=== PATIENT | male | born 1950 | race Caucasian/White ===

== ENCOUNTER 2017-10-12 08:29 | Emergency (ER) | payer OTHER ==
[~2017-10-12] VITALS: Ht 167.6 cm; Wt 86.7 kg
[~2017-10-12 08:29] MED LIST: DIAZ10TA PO; LANTUS2P SQ; OXYC5 PO
[2017-10-12 08:35] VITALS: BP 127/81; PULSE 101; RESP 16; TEMP 98.5; O2SAT 96
--- NOTE | 2017-10-12 09:28 | PD ---
HPI Chief Complaint: Skin Problem Time Seen by Provider: 09:19 Travel History International Travel<30 days: No Contact w/Intl Traveler<30days: No Traveled to known affect area: No History of Present Illness HPI This is a 66-year-old male who presents for skin infection. He states that overnight, he developed erythema and tenderness on the left posterior base of the neck. He is not sure if it started with a spider bite. No associated fever , chills, nausea, vomiting, diarrhea. No neck stiffness. He has been compliant with all his medications including his antirejection medications. He has been otherwise well recently. Symptoms are mild in severity. Onset gradual. Prior treatment includes warm compresses. No known alleviating or aggravating factors. PFSH Past Medical History Arthritis: Yes Asthma: No Autoimmune Disease: No Heart Rhythm Problems: No Cancer: Yes (LIVER) Cardiovascular Problems: Yes (htn on meds) High Cholesterol: No Chest Pain: No Congestive Heart Failure: Yes COPD: Yes Cerebrovascular Accident: No Diabetes: Yes (type 2) Diminished Hearing: No GERD: No Glaucoma: No Headaches: No Hepatitis: Yes (B AND C) Hiatal Hernia: No Hypertension: Yes Kidney Stones: No Neurologic: Yes (BACK PROBLEMS, NON SURGICAL DISC AND CURVATURE ISSUES) Respiratory: Yes (copd) Myocardial Infarction: No Pancreatitis: Yes Renal Failure: No Seizures: No Sleep Apnea: No Thyroid Disease: No Ulcer: No Past Surgical History Abdominal Surgery: Yes (LIVER ) AICD: No Cardiac Surgery: No Cholecystectomy: Yes Ear Surgery: No Endocrine Surgery: No Eye Surgery: No Genitourinary Surgery: No Gynecologic Surgery: No Oral Surgery: No Pacemaker: No Thoracic Surgery: Yes (PNEUMOTHORAX X 2 WITH ? CHEST TUBES) Other Surgery: Yes (PNEUMOTHORAX X 2) Social History Alcohol Use: No Tobacco Use: Yes (1 PPD) Substance Use: No Allergies-Medications (Allergen,Severity, Reaction): Uncoded Allergies: "CHOLESTEROL MEDICATION" (Allergy, Mild, 10/12/17) .RASH and effects liver functions Reported Meds & Prescriptions Reported Meds & Active Scripts Active Reported Wellbutrin SR 12 HR (Bupropion HCl) 150 Mg Tab 150 Mg PO DAILY Diazepam 10 Mg Tab 10 Mg PO DAILY PRN Hydrocodone-Acetaminophen 10-325 mg Tab 1 Tab PO TID PRN Hydrocodone-Acetaminophen 10-325 mg Tab 1 Tab PO Q4H PRN Metoprolol Tartrate 25 Mg Tab 12.5 Mg PO BID Sirolimus 0.5 Mg Tab 0.5 Mg PO DAILY Review of Systems Except as stated in HPI: all other systems reviewed are Neg Physical Exam Narrative GENERAL: Alert, well nourished, well appearing patient resting on the bed in no acute distress. Vital Signs reviewed SKIN: Focused skin assessment warm/dry. HEAD: Atraumatic. Normocephalic. EYES: Pupils equal and round. No scleral icterus. No injection or drainage. ENT: No nasal bleeding or discharge. Mucous membranes pink and moist. NECK: Trachea midline. No JVD. Spontaneous, painless full range of motion with no meningismus. At the base of the left side of the neck, there is a small scab. There is surrounding induration and erythema and mildly increased warmth. No fluctuance. No crepitus. CARDIOVASCULAR: Regular rate and rhythm. No murmur appreciated. Extremities warm and well perfused with bounding peripheral pulses RESPIRATORY: No accessory muscle use. Clear to auscultation. Breath sounds equal bilaterally. Breathing easily and speaking in full sentences GASTROINTESTINAL: Abdomen soft, non-tender, nondistended. Normal bowel sounds. No rigid, rebound, guarding MUSCULOSKELETAL: No obvious deformities. No clubbing. No cyanosis. No edema. NEUROLOGICAL: Awake and alert. No obvious cranial nerve deficits. Motor grossly within normal limits. Normal speech. Sensation intact. Normal gait Data Data Last Documented VS Vital Signs Date Time Temp Pulse Resp B/P (MAP) Pulse Ox O2 Delivery O2 Flow Rate FiO2 10/12/17 09:33 98 97 Room Air 10/12/17 08:35 98.5 16 127/81 (96) [facility] Medical Decision Making Medical Screen Exam Complete: Yes Emergency Medical Condition: Yes Medical Record Reviewed: Yes Differential Diagnosis Cellulitis, insect bite, no evidence of abscess formation Narrative Course The patient appears very well. He is afebrile. He has early cellulitis at the base of the left side of his neck. No area of drainable abscess formation. We discussed plan for discharge with warm compresses, antibiotics and recheck in 2 days. He will call his primary physician today to arrange this. Patient understands the importance of close outpatient follow-up. He understands he may require further testing and treatment as an outpatient. He understands strict return indications. He is comfortable with this plan and eager to go home. Diagnosis Primary Impression: Cellulitis Qualified Codes: L03.221 - Cellulitis of neck Referrals: Primary Care Physician 2 days Patient Instructions: Cellulitis (DC), General Instructions Additional Instructions: Take antibiotics as directed. Use warm compresses at least 4-5 times a day. Follow-up with primary physician in 2 days for recheck-call today to make an appointment. Return with worsening symptoms including fever, drainage, worsening infection. Med/Other Pt SpecificInfo: Prescription(s) given Scripts Clindamycin (Clindamycin) 150 Mg Cap 450 MG PO TID for Infection for 10 Days, CAP 0 Refills Prov: Ambar Rosado MD 10/12/17 Disposition: 01 DISCHARGE HOME Condition: Stable Ambar Rosado MD Oct 12, 2017 09:28
[2017-10-12 09:33] VITALS: PULSE 98; O2SAT 97
[2017-10-12] MEDS ORDERED: METO25TA3 PO (09:33)
[2017-10-12] MEDS ORDERED: DIAZ10TA PO (09:33)
[2017-10-12] MEDS ORDERED: HYDR-3583 PO ×2 (09:33)
[2017-10-12] MEDS ORDERED: BUPR150CR PO (09:33)
[2017-10-12] MEDS ORDERED: SIRO1TAB PO (09:33)
[2017-10-12] MEDS ORDERED: CLIN150C14 PO (09:40)
== END 2017-10-12 09:54 | disposition home or self-care (01) ==
LOC: PHED 08:29
DX: L03.221 Cellulitis of neck (principal); I10 Essential (primary) hypertension; J44.9 Chronic obstructive pulmonary disease, unspecified; B19.20 Unspecified viral hepatitis C without hepatic coma; B19.10 Unspecified viral hepatitis B without hepatic coma; E11.9 Type 2 diabetes mellitus without complications; I50.9 Heart failure, unspecified; F17.210 Nicotine dependence, cigarettes, uncomplicated; Z88.8 Allergy status to other drugs, medicaments and biological substances; Z85.05 Personal history of malignant neoplasm of liver
CPT/HCPCS: 99283

== ENCOUNTER 2017-10-17 14:25 | Emergency (ER) | payer OTHER ==
[~2017-10-17] VITALS: Ht 167.6 cm; Wt 85.5 kg
[2017-10-17] VITALS (7 sets, daily range): BP systolic 111–161; BP diastolic 64–88; PULSE 118–128; RESP 16–20; TEMP 98.6–100.9; O2SAT 95–98
[~2017-10-17 14:25] MED LIST changes: +BUPR150CR PO; +CLIN150C14 PO; +HYDR-3583 PO; -LANTUS2P SQ; +METO25TA3 PO; -OXYC5 PO; +SIRO1TAB PO
[2017-10-17] MEDS ORDERED: SODIUM CHLOR 0.9% 1000 ML INJ 1,000 ML IV ONE ×4 (16:53→21:15)
[2017-10-17] MEDS ORDERED: INSULIN HUMAN REGULAR 1,000 UNITS/10 ML VIAL IV PUSH ONE ×2 (17:00→19:00)
[2017-10-17] MEDS ORDERED: VANCOMYCIN INJ 1,000 MG in SODIUM CHLOR 0.9% 250 ML INJ 250 ML IV ONE (17:00)
--- NOTE | 2017-10-17 17:00 | PD ---
HPI Chief Complaint: Skin Problem Time Seen by Provider: 16:26 Travel History International Travel<30 days: No Contact w/Intl Traveler<30days: No Traveled to known affect area: No History of Present Illness HPI 66-year-old male with history of liver transplant at [facility] about 1.5 years ago, renal insufficiency, diabetes, seen in the emergency department on and diagnosed with cellulitis to his posterior neck. He was discharged home with a prescription for clindamycin which he reports compliance with. He returns today complaining of draining posterior neck wound, worsening pain, generalized malaise. He is unsure if he has had a fever. He denies picking or scratching the area. Pain is moderate, constant, worse with movements. He denies IVDU. PFSH Past Medical History Arthritis: Yes Asthma: No Autoimmune Disease: No Heart Rhythm Problems: No Cancer: Yes (LIVER) Cardiovascular Problems: Yes (htn on meds) High Cholesterol: No Chest Pain: No Congestive Heart Failure: Yes COPD: Yes Cerebrovascular Accident: No Diabetes: Yes (type 2, RSOLVED AFTER LIVER TRANSPLANT) Patient Takes Glucophage: No Diminished Hearing: No Gastrointestinal Disorders: No GERD: No Glaucoma: No Headaches: No Hepatitis: Yes (B AND C) Hiatal Hernia: No Hypertension: Yes Kidney Stones: No Musculoskeletal: No Neurologic: Yes (BACK PROBLEMS, NON SURGICAL DISC AND CURVATURE ISSUES) Reproductive: No Respiratory: Yes (copd) Myocardial Infarction: No Pancreatitis: Yes Renal Failure: No Seizures: No Sleep Apnea: No Thyroid Disease: No Ulcer: No Influenza Vaccination: No Past Surgical History Abdominal Surgery: Yes (LIVER ) AICD: No Cardiac Surgery: No Cholecystectomy: Yes Ear Surgery: No Endocrine Surgery: No Eye Surgery: No Genitourinary Surgery: No Gynecologic Surgery: No Insulin Pump: No Neurologic Surgery: No Oral Surgery: No Pacemaker: No Thoracic Surgery: Yes Other Surgery: Yes (PNEUMOTHORAX X 2) Social History Alcohol Use: No Tobacco Use: Yes (1 PPD) Substance Use: No Allergies-Medications (Allergen,Severity, Reaction): Uncoded Allergies: "CHOLESTEROL MEDICATION" (Allergy, Mild, ITCHING AND HIVES, 10/17/17) effects liver functions Reported Meds & Prescriptions Reported Meds & Active Scripts Active Clindamycin (Clindamycin HCl) 150 Mg Cap 450 Mg PO TID 10 Days Reported Wellbutrin SR 12 HR (Bupropion HCl) 150 Mg Tab 150 Mg PO DAILY Diazepam 10 Mg Tab 10 Mg PO DAILY PRN Hydrocodone-Acetaminophen 10-325 mg Tab 1 Tab PO TID PRN Metoprolol Tartrate 25 Mg Tab 12.5 Mg PO BID Sirolimus 0.5 Mg Tab 0.5 Mg PO DAILY Review of Systems Except as stated in HPI: all other systems reviewed are Neg Physical Exam Narrative GENERAL: Pleasant, well-developed, well-nourished, awake, alert, no apparent distress. SKIN: Large open wound to posterior neck with significant amount of purulent drainage with large amount of surrounding erythema and induration, no fluctuance. This area was evaluated using a bedside ultrasound using the linear probe and reveals cobblestoning which is consistent with cellulitis, no drainable fluid collection. Area of erythema extends to anterior neck/chest wall. HEAD: Atraumatic. Normocephalic. EYES: Pupils equal and round. No scleral icterus. No injection or drainage. ENT: No nasal bleeding or discharge. Mucous membranes pink and moist. NECK: Trachea midline. No JVD. Skin exam as above. CARDIOVASCULAR: Tachycardic, rate 120, regular. RESPIRATORY: No accessory muscle use. Clear to auscultation. Breath sounds equal bilaterally. GASTROINTESTINAL: Abdomen soft, non-tender, nondistended. MUSCULOSKELETAL: No obvious deformities. No clubbing. No cyanosis. No edema. NEUROLOGICAL: Awake and alert. No obvious cranial nerve deficits. Motor grossly within normal limits. Normal speech. PSYCHIATRIC: Appropriate mood and affect; insight and judgment normal. Data Data Last Documented VS Vital Signs Date Time Temp Pulse Resp B/P (MAP) Pulse Ox O2 Delivery O2 Flow Rate FiO2 10/17/17 20:05 100.9 123 20 161/81 (107) 96 Room Air Orders Orders Sepsis Workup Initiated (10/17/17 ) Complete Blood Count With Diff (10/17/17 16:53) Comprehensive Metabolic Panel (10/17/17 16:53) Prothrombin Time / Inr (Pt) (10/17/17 16:53) Act Partial Throm Time (Ptt) (10/17/17 16:53) Lactic Acid Sepsis Protocol (10/17/17 16:53) Blood Culture (10/17/17 16:53) Blood Glucose (10/17/17 16:53) Ecg Monitoring (10/17/17 16:53) Iv Access Insert/Monitor (10/17/17 16:53) Oximetry (10/17/17 16:53) Oxygen Administration (10/17/17 16:53) Sodium Chlor 0.9% 1000 Ml Inj (Ns 1000 M (10/17/17 16:53) Wound Culture And Gram Stain (10/17/17 16:53) Vancomycin Inj (Vancomycin Inj) (10/17/17 17:00) Ct Soft Tiss Neck W Iv Cont (10/17/17 ) Beta Hydroxybutyrate (Acetone) (10/17/17 16:55) Insulin Human Regular Inj (Novolin R Inj (10/17/17 17:00) Morphine Inj (Morphine Inj) (10/17/17 17:45) Piperacil-Tazo 3.375 Gm Premix (Zosyn 3. (10/17/17 18:00) Sodium Chlor 0.9% 1000 Ml Inj (Ns 1000 M (10/17/17 18:00) Iohexol 350 Inj (Omnipaque 350 Inj) (10/17/17 18:21) Insulin Human Regular Inj (Novolin R Inj (10/17/17 19:00) Sodium Chlor 0.9% 1000 Ml Inj (Ns 1000 M (10/17/17 19:30) Ibuprofen (Motrin) (10/17/17 19:30) Clindamycin 900 Mg/Ns Premix (Cleocin 90 (10/17/17 20:00) Labs Laboratory Tests Test 10/17/17 17:00 10/17/17 19:42 White Blood Count 22.7 TH/MM3 Red Blood Count 5.56 MIL/MM3 Hemoglobin 16.6 GM/DL Hematocrit 49.9 % Mean Corpuscular Volume 89.7 FL Mean Corpuscular Hemoglobin 29.9 PG Mean Corpuscular Hemoglobin Concent 33.3 % Red Cell Distribution Width 12.8 % Platelet Count 186 TH/MM3 Mean Platelet Volume 9.2 FL Neutrophils (%) (Auto) 82.2 % Lymphocytes (%) (Auto) 11.0 % Monocytes (%) (Auto) 5.5 % Eosinophils (%) (Auto) 0.5 % Basophils (%) (Auto) 0.8 % Neutrophils # (Auto) 18.7 TH/MM3 Lymphocytes # (Auto) 2.5 TH/MM3 Monocytes # (Auto) 1.2 TH/MM3 Eosinophils # (Auto) 0.1 TH/MM3 Basophils # (Auto) 0.2 TH/MM3 CBC Comment AUTO DIFF Differential Total Cells Counted 100 Neutrophils % (Manual) 71 % Band Neutrophils % 8 % Lymphocytes % 15 % Monocytes % 6 % Neutrophils # (Manual) 17.9 TH/MM3 Differential Comment FINAL DIFF MANUAL Platelet Estimate NORMAL Platelet Morphology Comment NORMAL Red Cell Morphology Comment NORMAL Prothrombin Time 10.4 SEC Prothromb Time International Ratio 1.0 RATIO Activated Partial Thromboplast Time 30.3 SEC Blood Urea Nitrogen 13 MG/DL Creatinine 1.70 MG/DL Random Glucose 497 MG/DL Total Protein 8.1 GM/DL Albumin 3.0 GM/DL Calcium Level 9.3 MG/DL Alkaline Phosphatase 141 U/L Aspartate Amino Transf (AST/SGOT) 12 U/L Alanine Aminotransferase (ALT/SGPT) 15 U/L Total Bilirubin 0.9 MG/DL Sodium Level 127 MEQ/L Potassium Level 4.1 MEQ/L Chloride Level 90 MEQ/L Carbon Dioxide Level 27.4 MEQ/L Anion Gap 10 MEQ/L Estimat Glomerular Filtration Rate 41 ML/MIN Lactic Acid Level 2.7 mmol/L B-Hydroxybutyrate 1.14 MMOL/L [facility] Medical Decision Making Medical Screen Exam Complete: Yes Emergency Medical Condition: Yes Differential Diagnosis Sepsis, cellulitis, abscess, bacteremia Narrative Course Initial vital signs show heart rate 124, blood pressure 139/65, pulse ox 95% on room air, oral temp of 99.4F. Patient was empirically written for IV vancomycin and IV Zosyn as well as 2 L normal saline IV. CBC: WBC 22.7, hemoglobin 16.6, hematocrit 49.9, platelets 186, neutrophils 82.2 %, band neutrophils 8%. CMP: Sodium 127, chloride 90, creatinine 1.7, GFR 41, random glucose 497, otherwise unremarkable. Lactic acid is 2.7. Beta hydroxybutyrate is 1.14. CT soft tissue neck: CONCLUSION: Prominent cellulitis, fasciitis and myositis involving the posterior lateral left neck. No evidence of drainable abscess. Case discussed with general surgeon Dr. Khan who reviewed CT images. Clinical exam does not show any crepitus, and the area of cellulitis has not progressed since the patient was initially evaluated by me. He states the patient may eventually need to go to the OR for debridement, but not emergently. Recommends that the patient be optimized medically and kept NPO and if his clinical status precipitously deteriorates, he would like to be contacted. The patient remains tachycardic despite receiving 2 L of normal saline IV. He was written for a third liter of normal saline IV and IV clindamycin was added to the antibiotic regimen. Patient was initially provided 8 units of insulin with improvement in blood sugar to 320. He was given another 8 units. Case discussed with credit counselor Dr. Gomez to admit the patient to the main hospital ICU. She discussed the case with critical care senior systems administrator Dr. Banks who states that the patient should be transferred to his transplant facility at [facility] in [facility]. I discussed this with Dr. Banks, and he will assist with arranging transfer. At this point in time at 8: 00 PM the patient was signed out to emergency physician Dr. Cordero to follow-up with transfer arrangements made by Dr. Banks. Critical Care Narrative Aggregate critical care time was 40 minutes. Time to perform other separately billable procedures was not included in the critical care time. My time did not include minutes spent treating any other patients simultaneously or on activities that did not directly contribute to the patient's treatment. The services I provided to this patient were to treat and/or prevent clinically significant deterioration that could result in: , permanent disability, worsening clinical condition, septic shock I provided critical care services requiring my management, as noted below: Chart data review, documentation time, medication orders and management, vital sign assessments/reviewing monitor data, ordering and reviewing lab tests, ordering and interpreting/reviewing x-rays and diagnostic studies, care of the patient and discussion of the patient with the admitting physicians. Diagnosis Primary Impression: Sepsis Qualified Codes: A41.9 - Sepsis, unspecified organism Additional Impressions: Cellulitis, neck Myositis Qualified Codes: M60.08 - Infective myositis, other site Hyperglycemia Admitting Information Admitting Physician Requests: Admit Alex Cano MD Oct 17, 2017 17:00
[2017-10-17 17:25] LABS: AUTOMATED NEUTROPHIL # 18.7 TH/MM3 (1.8-7.7); BASOPHIL # 0.2 TH/MM3 (0-0.2); BASOPHIL % 0.8 % (0.0-2.0); EOSINOPHIL # 0.1 TH/MM3 (0-0.4); EOSINOPHIL % 0.5 % (0.0-4.0); HEMATOCRIT 49.9 % (39.0-51.0); HEMOGLOBIN 16.6 GM/DL (13.0-17.0); LYMPHOCYTE # 2.5 TH/MM3 (1.0-4.8); MEAN CELL VOLUME 89.7 FL (80.0-100.0); MEAN CORPUSCULAR HEMOGLOBIN 29.9 PG (27.0-34.0); MEAN CORPUSCULAR HGB CONC 33.3 % (32.0-36.0); MEAN PLATELET VOLUME 9.2 FL (7.0-11.0); MONO % 5.5 % (0.0-8.0); MONOCYTE # 1.2 TH/MM3 (0-0.9); NEUT % 82.2 % (16.0-70.0); PLATELET COUNT 186 TH/MM3 (150-450); RED BLOOD COUNT 5.56 MIL/MM3 (4.50-5.90); RED CELL DISTRIBUTION WIDTH 12.8 % (11.6-17.2); WHITE BLOOD COUNT 22.7 TH/MM3 (4.0-11.0)
[2017-10-17 17:32] LABS: CHLORIDE 90 MEQ/L (98-107); SODIUM (NA) 127 MEQ/L (136-145)
[2017-10-17 17:35] LABS: CALCIUM 9.3 MG/DL (8.5-10.1)
[2017-10-17 17:36] LABS: BICARBONATE 27.4 MEQ/L (21.0-32.0)
[2017-10-17 17:44] LABS: LACTIC ACID SEPSIS PROTOCOL 2.7 mmol/L (0.4-2.0)
[2017-10-17] MEDS ORDERED: MORPHINE SULFATE 2 MG/ML INJ IV PUSH ONE ×2 (17:45→22:30)
[2017-10-17 17:50] LABS: BANDS 8 % (0-6); LYMPHOCYTES 15 % (9-44); MONOCYTES 6 % (0-8); NEUTROPHIL # MANUAL DIFF 17.9 TH/MM3 (1.8-7.7); POLYS (SEG NEUTROPHILS) 71 % (16-70)
[2017-10-17 17:54] LABS: ALKALINE PHOSPHATASE 141 U/L (45-117); ALT (GPT) 15 U/L (12-78); AST (GOT) 12 U/L (15-37); BLOOD UREA NITROGEN 13 MG/DL (7-18); GLOMERULAR FILTRATION RATE 41 ML/MIN (>89); TOTAL BILIRUBIN ADULT 0.9 MG/DL (0.2-1.0); TOTAL PROTEIN 8.1 GM/DL (6.4-8.2)
[2017-10-17 17:55] LABS: GLUCOSE,RANDOM 497 MG/DL (74-106)
[2017-10-17] MEDS ORDERED: PIPERACIL-TAZO 3.375 GM PREMIX 50 ML IV ONE (18:00)
[2017-10-17 18:15] LABS: PROTHROMBIN TIME - PATIENT 10.4 SEC (9.8-11.6)
[2017-10-17] MEDS ORDERED: IOHEXOL 350 MG/ML 10 ML VIAL (for RAD DIAG) IVCONTRAST ONE (18:21)
--- NOTE | 2017-10-17 18:47 | RADRPT ---
EXAM DATE/TIME: 10/17/2017 18:17 [facility] COMPARISON: No previous studies available for comparison. INDICATIONS : Left posterior neck pain and drainage. Evaluate for abscess. IV CONTRAST: 65 cc Omnipaque 350 (iohexol) IV RADIATION DOSE: 15.87 CTDIvol (mGy) MEDICAL HISTORY : Chronic obstructive pulmonary disease. Renal insufficiency. Congestive heart failure.Diabetes. Hep B &C. Hypertension. Pancreatitis. SURGICAL HISTORY : Cholecystectomy. Liver transplant. ENCOUNTER: Initial ACUITY: 4 - 6 days PAIN SCALE: 7/10 LOCATION: Left neck TECHNIQUE: Volumetric scanning of the neck was performed. Using automated exposure control and adjustment of th e mA and/or kV according to patient size, radiation dose was kept as low as reasonably achievable to obtain optimal diagnostic quality images. DICOM format image data is available electronically for r eview and comparison. FINDINGS: There is extensive edematous change and induration involving the superficial and deep subcutaneous ti ssues and underlying muscular tissues of the posterior and lateral left neck. There are areas of nodu lar skin thickening present. There is no discrete fluid density collection to suggest drainable absce ss. The appearance suggests fairly advanced cellulitis, fasciitis and myositis. Elsewhere, the visualized brain and orbitofacial structures are unremarkable. The upper airway struct ures are unremarkable. There is no evidence of jugular chain lymphadenopathy. Thyroid is normal for C T appearance. No supraclavicular mass or adenopathy is noted. The upper mediastinum is clear. The natalya g apices are clear. CONCLUSION: Prominent cellulitis, fasciitis and myositis involving the posterior lateral left neck. No evidence o f drainable abscess Raad Salas MD on October 17, 2017 at 18:42 Board Certified Radiologist. This report was verified electronically.
[2017-10-17] MEDS ORDERED: IBUPROFEN 600 MG TAB PO ONE (19:30)
[2017-10-17] MEDS ORDERED: CLINDAMYCIN 900 MG/NS PREMIX 50 ML IV ONE (20:00)
--- NOTE | 2017-10-17 20:54 | PD ---
Physical Exam Date Seen by Provider: Oct 17, 2017 Time Seen by Provider: 20:05 Narrative accepted in transfer of care from Dr Cano GENERAL: Well-developed well-nourished male in no acute respiratory distress; GCS is 15 patient is talking on his cell phone; vital signs HR: [address]; RR: 16 non labored; BP: 111/61; ra O2 sat: 93% T: 100.9F SKIN: Warm and dry. HEAD: Normocephalic. EYES: No scleral icterus. No injection or drainage. NECK: Supple, trachea midline. No JVD or lymphadenopathy. Posterior left neck large area of induration with spontaneous purulent drainage 7 CM X 5 CM with extension of erythema and tapering induration 29 CM X 16 CM. No crepitus to soft tissue palpation. CARDIOVASCULAR: Increased regular rate and rhythm without murmurs, gallops, or rubs. RESPIRATORY: Breath sounds equal bilaterally. No accessory muscle use. Data Data Last Documented VS Vital Signs Date Time Temp Pulse Resp B/P (MAP) Pulse Ox O2 Delivery O2 Flow Rate FiO2 10/17/17 20:05 100.9 123 20 161/81 (107) 96 Room Air Orders Orders Sepsis Workup Initiated (10/17/17 ) Complete Blood Count With Diff (10/17/17 16:53) Comprehensive Metabolic Panel (10/17/17 16:53) Prothrombin Time / Inr (Pt) (10/17/17 16:53) Act Partial Throm Time (Ptt) (10/17/17 16:53) Lactic Acid Sepsis Protocol (10/17/17 16:53) Blood Culture (10/17/17 16:53) Blood Glucose (10/17/17 16:53) Ecg Monitoring (10/17/17 16:53) Iv Access Insert/Monitor (10/17/17 16:53) Oximetry (10/17/17 16:53) Oxygen Administration (10/17/17 16:53) Sodium Chlor 0.9% 1000 Ml Inj (Ns 1000 M (10/17/17 16:53) Wound Culture And Gram Stain (10/17/17 16:53) Vancomycin Inj (Vancomycin Inj) (10/17/17 17:00) Ct Soft Tiss Neck W Iv Cont (10/17/17 ) Beta Hydroxybutyrate (Acetone) (10/17/17 16:55) Insulin Human Regular Inj (Novolin R Inj (10/17/17 17:00) Morphine Inj (Morphine Inj) (10/17/17 17:45) Piperacil-Tazo 3.375 Gm Premix (Zosyn 3. (10/17/17 18:00) Sodium Chlor 0.9% 1000 Ml Inj (Ns 1000 M (10/17/17 18:00) Iohexol 350 Inj (Omnipaque 350 Inj) (10/17/17 18:21) Insulin Human Regular Inj (Novolin R Inj (10/17/17 19:00) Sodium Chlor 0.9% 1000 Ml Inj (Ns 1000 M (10/17/17 19:30) Ibuprofen (Motrin) (10/17/17 19:30) Clindamycin 900 Mg/Ns Premix (Cleocin 90 (10/17/17 20:00) Sodium Chlor 0.9% 1000 Ml Inj (Ns 1000 M (10/17/17 21:15) Acetaminophen (Tylenol) (10/17/17 21:15) Labs Laboratory Tests Test 10/17/17 17:00 10/17/17 19:42 White Blood Count 22.7 TH/MM3 Red Blood Count 5.56 MIL/MM3 Hemoglobin 16.6 GM/DL Hematocrit 49.9 % Mean Corpuscular Volume 89.7 FL Mean Corpuscular Hemoglobin 29.9 PG Mean Corpuscular Hemoglobin Concent 33.3 % Red Cell Distribution Width 12.8 % Platelet Count 186 TH/MM3 Mean Platelet Volume 9.2 FL Neutrophils (%) (Auto) 82.2 % Lymphocytes (%) (Auto) 11.0 % Monocytes (%) (Auto) 5.5 % Eosinophils (%) (Auto) 0.5 % Basophils (%) (Auto) 0.8 % Neutrophils # (Auto) 18.7 TH/MM3 Lymphocytes # (Auto) 2.5 TH/MM3 Monocytes # (Auto) 1.2 TH/MM3 Eosinophils # (Auto) 0.1 TH/MM3 Basophils # (Auto) 0.2 TH/MM3 CBC Comment AUTO DIFF Differential Total Cells Counted 100 Neutrophils % (Manual) 71 % Band Neutrophils % 8 % Lymphocytes % 15 % Monocytes % 6 % Neutrophils # (Manual) 17.9 TH/MM3 Differential Comment FINAL DIFF MANUAL Platelet Estimate NORMAL Platelet Morphology Comment NORMAL Red Cell Morphology Comment NORMAL Prothrombin Time 10.4 SEC Prothromb Time International Ratio 1.0 RATIO Activated Partial Thromboplast Time 30.3 SEC Blood Urea Nitrogen 13 MG/DL Creatinine 1.70 MG/DL Random Glucose 497 MG/DL Total Protein 8.1 GM/DL Albumin 3.0 GM/DL Calcium Level 9.3 MG/DL Alkaline Phosphatase 141 U/L Aspartate Amino Transf (AST/SGOT) 12 U/L Alanine Aminotransferase (ALT/SGPT) 15 U/L Total Bilirubin 0.9 MG/DL Sodium Level 127 MEQ/L Potassium Level 4.1 MEQ/L Chloride Level 90 MEQ/L Carbon Dioxide Level 27.4 MEQ/L Anion Gap 10 MEQ/L Estimat Glomerular Filtration Rate 41 ML/MIN Lactic Acid Level 2.7 mmol/L 2.6 mmol/L B-Hydroxybutyrate 1.14 MMOL/L [facility] Medical Record Reviewed: Yes Supervised Visit with MONA: No Interpretation(s) Last Impressions Neck CT 10/17/17 0000 Signed Impressions: Service Date/Time: Tuesday, October 17, 2017 18:17 - CONCLUSION: Prominent cellulitis, fasciitis and myositis involving the posterior lateral left neck. No evidence of drainable abscess Raad Salas MD Vital Signs Date Time Temp Pulse Resp B/P (MAP) Pulse Ox O2 Delivery O2 Flow Rate FiO2 10/17/17 20:05 100.9 123 20 161/81 (107) 96 Room Air 10/17/17 20:05 123 20 10/17/17 18:35 120 16 153/78 (103) 98 Room Air 10/17/17 17:00 95 Room Air 10/17/17 17:00 95 Room Air 10/17/17 17:00 120 18 145/88 (107) 95 Room Air 10/17/17 14:31 99.4 124 20 139/65 (89) [address] 10/17/17 0000 Signed Impressions: Service Date/Time: Tuesday, October 17, 2017 18:17 - CONCLUSION: Prominent cellulitis, fasciitis and myositis involving the posterior lateral left neck. No evidence of drainable abscess Raad Salas MD CBC & BMP Diagram 10/17/17 17:00 Total Protein 8.1, Albumin 3.0 L, Calcium Level 9.3, Alkaline Phosphatase 141 H , Aspartate Amino Transf (AST/SGOT) 12 L, Alanine Aminotransferase (ALT/SGPT) 15 , Total Bilirubin 0.9 Lactic acid: 2.7; 2.6 Differential Diagnosis accepted in transfer of care from Dr Cano; please refer to his dictation Narrative Course accepted in transfer of care from Dr Cano for arranging patient disposition with plan to transfer to accepting facility where he had undergone transplant -- working with [employer] Director Dr Banks Patient is aware of plan for transfer to [facility] and is agreeable to transfer discussed with Dr Banks [phone] @ 20:20 -- per Dr Banks "[facility]; call from ED MD to ED MD" per Dr Banks required per Dr Banks per [facility]; (also per Dr Banks he reports he has discussed with local transplant MD, Dr Loco Jacome, who reported patient requires transfer to transplant capable facility for management ). Call has been placed to EMS for emergent facility to facility transfer Physician Communication Physician Communication discussed with Taty Banks [phone] @ 20:20 -- per Dr Banks "[facility] by [facility] ED; call from ED MD to ED MD" per Dr Banks; call placed to [facility] [place] --[phone] -- -> per [place] --has "patient has already been discussed with another MD Dr Banks and arrangements are in place to accept this patient ED to ED; transplant team not involved in direct transfer as patient transplant greater than1 year instead will be an ED to ED transfer with the accepting physician being the [facility] ED MD, Dr Tucker". Discussed with Dr Negro Tucker the ED MD -- Dr Tucker is accepting the patient directly to their ED from our ED as an ED to ED transfer. Diagnosis Primary Impression: Sepsis Qualified Codes: A41.9 - Sepsis, unspecified organism Additional Impressions: Cellulitis, neck Hyperglycemia Myositis Qualified Codes: M60.08 - Infective myositis, other site Disposition: 70 TRANSFER TO OTHER FACILITY ([facility] ED to ED to accepting ED physician Dr Negro Tucker) Condition: Stable Saundra Cordero MD Oct 17, 2017 20:54
[2017-10-17] MEDS ORDERED: ACETAMINOPHEN 325 MG TAB PO ONE (21:15)
[2017-10-17] MEDS ORDERED: ONDANSETRON HCL 4 MG/2 ML VIAL IV PUSH ONE (22:30)
== END 2017-10-17 23:12 | disposition short-term general hospital (02) ==
LOC: PHED 14:25
DX: A41.9 Sepsis, unspecified organism (principal); L03.221 Cellulitis of neck; M60.08 Infective myositis, other site; B95.62 Methicillin resistant Staphylococcus aureus infection as the cause of diseases classified elsewhere; M72.9 Fibroblastic disorder, unspecified; E11.65 Type 2 diabetes mellitus with hyperglycemia; I11.0 Hypertensive heart disease with heart failure; I50.9 Heart failure, unspecified; Z94.4 Liver transplant status
CPT/HCPCS: 70491; 80053; 82010; 83605; 85007; 85027; 85610; 85730; 86403; 87040; 87070; 87186; 96361; 96365; 96366; 96367; 96375; 96376; 99291; J1815; J2270; J2405; J2543; J3370; J7030; J7050; Q9967; 87205